=== PATIENT | male | born 1935 | race Caucasian/White ===

== ENCOUNTER → 2023-09-17 15:05 | Outpatient (REF) | payer OTHER, SELFPAY | LOC: RCS 15:05 | PROVIDERS: ATTENDING PHYSICIAN Internal Medicine | DX: R01.1 Cardiac murmur, unspecified (principal) | CPT/HCPCS: 93306 ==

== ENCOUNTER 2024-01-09 08:37 | Emergency (ER) | payer OTHER, SELFPAY ==
[2024-01-09 08:38] VITALS: BP 138/75
[2024-01-09 09:01] VITALS: BMI 24.7
[2024-01-09 09:06] VITALS: BP 136/66
--- NOTE | 2024-01-09 09:10 | EDRN ---
Dr. Rose in room w/ pt at this time.
--- NOTE | 2024-01-09 09:19 | EDRN ---
bridge of nose cleansed extensively w/ saline then dressed w/ double antibiotic ointment. Fingers #3, 4, and 5 cleansed extensively w/saline and dressed w/ double antibiotic ointment. Bilateral knees cleansed extensively w/ saline- R knee dressed w/
double antibiotic ointment and L knee as abrasion larger and sl deeper was dressed w/ double antibiotic ointment and bandaid (large size).
--- NOTE | 2024-01-09 09:21 | ED.GENMED ---
History of Present Illness
General
Chief Complaint: Fall
Source: patient and spouse ( who is at the bedside)
Exam Limitations: none
Time Seen by Provider: 01/09/24 08:53
Nursing documentation reviewed up to this point in time: agreed with
History of Present Illness
History of Present Illness:
The patient is a very pleasant 88-year-old man who reports that about 24 hours ago, he missed a step out to his garage and fell in his garage on the concrete. Patient reports that he scraped the bridge of his nose, and fell onto his right hand and
his knees. Patient reports there was no loss of consciousness and he did not hit his head. He denies nausea, vomiting and vision changes. He denies dizziness. He denies neck pain, chest pain and back pain. Patient reports that since the fall,
he has had swelling in severe pain in his right knee and has been able to walk around with the help of his . Patient takes a baby aspirin but no Plavix nor any strong blood thinners. Patient has an abrasions on the bridge of his nose, on his
right hand and left knee.
Past History
Past History
ED Past Medical History: HTN and Hypercholesterolemia
ED Past Surgical History: Orthopedic (Bilateral knee replacements) and Other (Hernia repair)
Social History
Tobacco: Non-smoker
Alcohol: Former
Drug: None
Personal:
Living: with family
Employment: Retired
Family History
Family History: Other
Review of Systems
Review of Systems
Allergies reviewed?: Yes
All Other Systems: ROS reviewed and negative except as documented in HPI and ROS
Constitutional: Reports no symptoms
EENT: Reports no symptoms
Respiratory: Reports no symptoms
Cardiac: Reports no symptoms
ABD/GI: Reports no symptoms
: Reports no symptoms
Musculoskeletal: Reports joint pain and joint swelling
Skin: Reports other
Neurological: Reports no symptoms
Endocrine: Reports no symptoms
Hematologic/Lymphatic: Reports no symptoms
Psychiatric: Reports no symptoms
Phy Exam
Physical Exam
Physical Exam:
Physical Exam
General: no apparent distress, not acutely ill, smiling, conversational. Abrasion of bridge of nose with mild ecchymoses in the localized area of bridge of nose. No significant swelling or deformity of bridge of nose. Facial
bones are nontender and there is no swelling of periorbital area, forehead, and cheeks. No tenderness or swelling of maxilla or mandible
Neck: supple. Nontender
Heart: s1/s2 regular rate and rhythm, equal radial pulses. No chest wall tenderness, no vertebral spine tenderness
Lungs: no acute respiratory distress. clear bilaterally
Abdomen: Soft, nontender
Neuro: alert and orientedx3. no focal neurological deficits. Fully awake, alert and answering all questions appropriately. 5 out of 5 strength in all extremities without drift. Extraocular muscles intact
Skin: Small skin abrasion bridge of nose, small abrasions on PIP joint of fifth, fourth, and third fingers of right hand. Abrasion left patellar area
Psychiatric: well kept. interactive and cooperative
Extremities: Mild soft tissue tenderness of right hand. No tenderness of bilateral wrists, elbows, and shoulders. Pelvis and hips are nontender. Mild soft tissue tenderness of left knee. Significant swelling and ecchymoses
of right anterior knee. Strong pulses of bilateral feet. No swelling of ankles bilaterally. Negative Homans' sign.
Course
Orders/Labs/Results
Orders:
Orders
01/09/24 09:17
CR Knee - Left 4 Or More View* Urgent
Comment:
Reason For Exam: fall
CR Knee- Right 4 Or More View* Urgent
Comment: sunrise view please
Reason For Exam: fall
01/09/24 09:18
Hand, Right 3 View [CR Hand - Right Min 3 Views] Urgent
Comment:
Reason For Exam: fall
PT Consult [Pt Eval And Treat] Urgent
Activity Level: Out of Bed-Early Mobility
01/09/24 09:19
Acetaminophen [Tylenol] 1,000 mg PO NOW STA
Tetanus/Diphth/Acelpertussis [Adacel] 0.5 ml IM .ONCE ONE
01/09/24 10:27
Knee Immobilizer Right-Treatme ONCE
01/09/24 10:58
Case Management Consult ONCE
Case Management Consult: VN/Home Care
Requested By:: PHYSICIAN
Comment: Pt needs home PT for right patellar fracture
Vital Signs
Initial and Last Documented VS:
Initial Vital Signs
Temp Pulse Resp BP Pulse Ox
98.3 F 91 16 138/75 100
01/09/24 08:38 01/09/24 08:38 01/09/24 08:38 01/09/24 08:38 01/09/24 08:38
Last Documented Vital Signs
Temp Pulse Resp BP Pulse Ox
98.3 F 78 16 146/80 96
01/09/24 08:38 01/09/24 10:00 01/09/24 10:00 01/09/24 10:00 01/09/24 10:00
MDM/Problems Addressed
Differential Diagnosis Includes:
Right patellar fracture, right knee contusion, nasal bone fracture
MDM/Problems Addressed:
Patient presents with acute right knee pain and swelling after fall yesterday
Chronic conditions affecting care: HTN
Acute Exacerbation and/or Progression of Chronic Illness:
Patient is acutely hypertensive, however, he is having significant pain in right knee
Acute Exacerbation and/or Progression of Chronic Illness: HTN
*Radiology
Radiology exam reviewed: preliminary read by ED provider (Right hand x-ray reviewed by me. No acute fracture. No acute fracture of left knee. Patellar fracture of right knee, reviewed by me) and radiology read reviewed
*Pulse Oximetry
Patient hypoxic: no
*EKG
Interpreted by ED Provider?: NA
*Critical Care Note
Total Time (30-74mins, 75-104mins- exclusive of procedures): Not Applicable
Data Reviewed
Review of Other/Old Records Reveals: Testing (Cardiac echo in 09/17/2023 showed an EF of 55 to 60%)
Source: patient and spouse
Further Testing Considered But Not Given:
I considered doing a CT of patient's face to look for nasal bone fracture, however, patient has minimal bruising of bridge of nose and says to be breathing comfortably out of his nose. We discussed the fact the patient could have a nasal bone
fracture, however, patient and his feel that a CAT scan is unnecessary if there is not a specific need to do urgent/emergent surgery or any specific intervention even if there is a nasal bone fracture. It is highly doubtful patient has a
periorbital fracture given that he is moving his eyes around normally and has no bruising or swelling around eyes or cheeks. Additionally, I do not think a CT head is necessary because patient has had no headache or dizziness. He denies hitting
his head. He is not on blood thinners.
Patient Management
Social determinants of health affecting care: Living situation and Strong social support
Discussion with other providers: Other (Physical therapy came to see the patient. Patient was able to get around well with a knee immobilizer and walker. I have also consulted case management to set up home physical therapy)
Escalation/DeEscalation of care consider admission/obs:
Fracture discussed with Dr. Tam who is the on-call orthopedic doctor for [facility]. He agreed with knee immobilizer and weight-bear as tolerated.
ED Attending Note
-
Portions of this chart may have been created with voice recognition software.� Occasional wrong word or��sound alike� substitutions may have occurred due to the inherent limitations of voice recognition software.
Discharge Plan
Departure
Patient Disposition: Home (Routine Discharge)
Date of Disposition: 01/09/24
Time of Disposition: 10:57
Patient with high blood pressure during this ER visit?: Yes
Consults for patient: Case Management
Condition: Good
Covid-19: Not Applicable
Discharge Problem:
Right patella fracture, Abrasion of skin of right hand, Abrasion of face, Abrasion of left knee
Instructions: Knee Immobilizer (DC), Abrasions ED, Patella Fracture ED, BLOOD PRESSURE
Prescriptions:
No Action
naproxen 500 MG tablet,delayed release (DR/EC)
500 mg PO BID
atorvastatin 10 MG tablet
10 mg PO QPM
aspirin [Lo-Dose Aspirin] 81 MG tablet,delayed release (DR/EC)
81 mg PO QPM
lisinopril 10 MG tablet
20 mg PO DAILY
Glucosamine
500 mg PO BID
Cream Base
PRN (Reason: right under arm/right chest ra)
Patient Comments:
patient does not recall the name of the cream. His will bring in the tube and show the nurse after his surgery is completed.
fluocinonide-emollient 60 GM cream
60 gm TP
Patient Comments:
use as needed to the underarm prn
Referrals:
Brett Juarez MD [Family Provider] -
Lucas Cortes MD [Active] - (Call Dr. Cortes's office this Thursday to set up an appointment for as soon as possible.)
Activity Restrictions/Additional Instructions:
Weight-bear as tolerated on your right leg. Wear the immobilizer at all times. Please call Dr. Cortes's office on Thursday to see an orthopedic doctor soon as possible. Return with any significant headache or dizziness.
Interventions
Interventions:
*Risk Screen - Suicide Last Done: 01/09/24 08:38
*General Assessment Last Done: 01/09/24 09:01
*Neglect/Abuse Screening Last Done: 01/09/24 08:38
ED- Fall Risk Assessment Last Done: 01/09/24 09:01
*ED COVID-19 Vaccine History Last Done: 01/09/24 09:01
ED-Musculoskeletal Assessment Last Done: 01/09/24 09:06
ED- Neurological Assessment Last Done: 01/09/24 09:06
ED-Skin Assessment Last Done: 01/09/24 09:06
Discharge Date and Time
Print Language: PORTUGUESE
[2024-01-09 10:00] VITALS: BP 146/80
[2024-01-09] MEDS: TYLENOL 1000 MG PO (10:00)
[2024-01-09] MEDS: ADACEL 0.5 ML IM (10:01)
[2024-01-09 10:45] VITALS: BP 132/76
--- NOTE | 2024-01-09 10:54 | EDRN ---
PT is in room w/ pt at this time.
--- NOTE | 2024-01-09 10:55 | EDRN ---
PT states pt had less pain w/ knee immobilizer, walked well w/ walker w/ PT. Spouse states walker is available to pt at home. PT is recommending in home PT w/ case management consult for that. Pt advised pt to remain downstairs for now and not
attempt stairs in house.
[2024-01-09 11:01] VITALS: BP 132/76; PULSE 75; O2SAT 96
[2024-01-09 11:15] VITALS: BP 135/77
--- NOTE | 2024-01-09 11:35 | EDRN ---
Addendum entered by Yusra Esposito RN 01/09/24 11:36:
in at 11:15
Original Note:
[employer] Yesika in to see pt and gave details of PT that it would start next week and that PT will call them.
--- NOTE | 2024-01-09 11:48 | CM ---
CM consult for placement. CM introduced self and role. PT recommending PT/OT with [facility]. Patient chose [facility].
== END 2024-01-09 11:30 | disposition home or self-care (01) ==
LOC: EMR 08:37
PROVIDERS: EMERGENCY PHYSICIAN Emergency Medicine; FAMILY PHYSICIAN Internal Medicine
DX: S82.041A Displaced comminuted fracture of right patella, initial encounter for closed fracture (principal); S60.511A Abrasion of right hand, initial encounter; S80.212A Abrasion, left knee, initial encounter; S00.31XA Abrasion of nose, initial encounter; W10.9XXA Fall (on) (from) unspecified stairs and steps, initial encounter; I10 Essential (primary) hypertension; Z23 Encounter for immunization; Z96.653 Presence of artificial knee joint, bilateral
CPT/HCPCS: 99283; 29505; 90471; 73130; 73564; 90715

== ENCOUNTER 2024-03-11 11:04 | Emergency (ER) | payer OTHER, SELFPAY ==
[2024-03-11 11:08] VITALS: BP 162/92
[2024-03-11 12:03] VITALS: BP 167/72; BMI 22.8
--- NOTE | 2024-03-11 12:04 | ED.GENMED ---
History of Present Illness
General
Chief Complaint: Cardiac Symptoms
Source: patient and spouse
Exam Limitations: none
Time Seen by Provider: 03/11/24 11:55
Nursing documentation reviewed up to this point in time: agreed with
History of Present Illness
History of Present Illness:
89-year-old male presents emergency department after going to urgent care to have the wax cleaned out his ears. When he was there they checked his blood pressure, did an EKG and heard a murmur.
Past History
Past History
ED Past Medical History: HTN and Hypercholesterolemia
ED Past Surgical History: Orthopedic (Bilateral knee replacements) and Other (Hernia repair)
Social History
Tobacco: Non-smoker
Alcohol: Former
Drug: None
Personal:
Living: with family
Employment: Retired
Family History
Family History: Other
Review of Systems
Review of Systems
Allergies reviewed?: Yes
All Other Systems: Not applicable
Constitutional: Reports no symptoms
EENT: Reports no symptoms
Respiratory: Reports no symptoms
Cardiac: Reports no symptoms
ABD/GI: Reports no symptoms
: Reports no symptoms
Musculoskeletal: Reports no symptoms
Skin: Reports no symptoms
Neurological: Reports no symptoms
Endocrine: Reports no symptoms
Hematologic/Lymphatic: Reports no symptoms
Psychiatric: Reports no symptoms
Phy Exam
Physical Exam
Physical Exam:
Physical Exam
General: no apparent distress, not acutely ill
Neck: supple. no meningeal signs. normal posterior pharynx
Heart: s1/s2 regular rate and rhythm, 3/6 systolic ejection murmur. equal radial
pulses.
HEENT: Pupils equal round reactive to light, EOMI
Lungs: no acute respiratory distress. clear bilaterally
Abdomen: normal bowel sounds. not tender. no CVAT
Neuro: alert and oriented. no focal neurological deficits cranial nerves II through XII intact
Skin: no rash
Psychiatric: well kept. interactive and cooperative
Extremities: no edema. no calf tenderness. negative homans. good distal pulses
Course
Orders/Labs/Results
Orders:
Orders
03/11/24 11:12
Electrocardiogram (*1) Urgent
Reason for Study: Chest Pain
EKG- Treatment ONCE
Vital Signs
Initial and Last Documented VS:
Initial Vital Signs
Temp Pulse Resp BP Pulse Ox
97.8 F 74 20 162/92 98
03/11/24 11:08 03/11/24 11:08 03/11/24 11:08 03/11/24 11:08 03/11/24 11:08
Last Documented Vital Signs
Temp Pulse Resp BP Pulse Ox
98.5 F 71 20 167/72 97
03/11/24 12:03 03/11/24 12:03 03/11/24 12:03 03/11/24 12:03 03/11/24 12:15
MDM/Problems Addressed
Differential Diagnosis Includes:
Heart murmur
MDM/Problems Addressed:
89-year-old male with heart murmur, old. Patient had echocardiogram in September that showed a aortic stenosis, mild and mild tricuspid regurgitation. Patient denies any symptoms. Stable for discharge. Urgent care felt this was a new murmur and sent
him to the ED.
*Pulse Oximetry
Patient hypoxic: no
*Critical Care Note
Total Time (30-74mins, 75-104mins- exclusive of procedures): Not Applicable
Data Reviewed
Review of Other/Old Records Reveals: Testing (Echocardiogram September 2023 showed tricuspid regurgitation and mild aortic stenosis)
Source: records
Further Testing Considered But Not Given:
Labs not indicated
Patient Management
Social determinants of health affecting care: Living situation and Strong social support
Escalation/DeEscalation of care consider admission/obs:
Admit not indicated
ED Attending Note
-
Portions of this chart may have been created with voice recognition software.� Occasional wrong word or��sound alike� substitutions may have occurred due to the inherent limitations of voice recognition software.
Discharge Plan
Departure
Patient Disposition: Home (Routine Discharge)
Date of Disposition: 03/11/24
Time of Disposition: 12:11
Patient with high blood pressure during this ER visit?: Yes
Condition: Good
Discharge Problem:
Systolic ejection murmur, Aortic stenosis
Instructions: Aortic Stenosis, Adult (DC), BLOOD PRESSURE
Prescriptions:
No Action
naproxen 500 MG tablet,delayed release (DR/EC)
500 mg PO BID
atorvastatin 10 MG tablet
10 mg PO QPM
aspirin [Lo-Dose Aspirin] 81 MG tablet,delayed release (DR/EC)
81 mg PO QPM
lisinopril 10 MG tablet
20 mg PO DAILY
Glucosamine
500 mg PO BID
Cream Base
PRN (Reason: right under arm/right chest ra)
Patient Comments:
patient does not recall the name of the cream. His will bring in the tube and show the nurse after his surgery is completed.
fluocinonide-emollient 60 GM cream
60 gm TP
Patient Comments:
use as needed to the underarm prn
Referrals:
Mony Hernandez, DO [Active] - Call in 1-3 days for appt
Interventions
Interventions:
*Risk Screen - Suicide Last Done: 03/11/24 11:08
*General Assessment Last Done: 03/11/24 11:08
*Neglect/Abuse Screening Last Done: 03/11/24 11:08
ED- Fall Risk Assessment Last Done: 03/11/24 12:03
*ED COVID-19 Vaccine History Last Done: 03/11/24 12:03
*Nursing Disposition Last Done: 03/11/24 12:18
ED- Pulmonary Assessment Last Done: 03/11/24 12:03
ED- Cardiac Assessment Last Done: 03/11/24 12:03
Discharge Date and Time
Discharge Date/Time: 03/11/24 12:19
Print Language: SERBIAN
== END 2024-03-11 12:19 | disposition home or self-care (01) ==
LOC: EMR 11:04
PROVIDERS: EMERGENCY PHYSICIAN Emergency Medicine; FAMILY PHYSICIAN Internal Medicine
DX: I08.2 Rheumatic disorders of both aortic and tricuspid valves (principal); I35.0 Nonrheumatic aortic (valve) stenosis; I10 Essential (primary) hypertension; E78.00 Pure hypercholesterolemia, unspecified; Z96.653 Presence of artificial knee joint, bilateral
CPT/HCPCS: 99283; 93005

== ENCOUNTER 2024-08-09 17:59 | Emergency (ER) | payer OTHER, SELFPAY ==
[2024-08-09 18:02] VITALS: BP 126/75
[2024-08-09 18:15] LABS: % Basophils 0.2 % (0-2); % Immature Granulocytes 0.3 % (0-0.5); % Lymphocytes 5.3 % (20.5-51.1); % Monocytes 4.7 % (1.7-9.3); % Neutrophils 89.5 % (42.2-75.2); Absolute Immature Granulocytes 0.1 10^3/uL (0-0.05); Absolute Lymphocytes 0.8 10^3/uL (1.2-3.4); Absolute Monocytes 0.7 10^3/uL (0.1-0.6); Absolute Neutrophils 13.4 10^3/uL (1.4-6.5); Hematocrit 39.3 % (39.0-52.0); Hemoglobin 14.1 g/dL (13.0-18.0); Mean Corp Hgb Conc. 35.9 g/dL (33.0-37.0); Mean Corpuscular Hgb 31.1 pg (27.0-31.0); Mean Corpuscular Volume 86.8 fL (80.0-94.0); Mean Platelet Volume 9.1 fL (7.4-10.4); Nucleated Red Blood Cells % 0 % (-); Platelet Count 242 10^3/uL (130-400); Red Blood Cell Count 4.53 10^6/uL (4.70-6.10); Red Cell Dist. Width 12.8 % (11.5-14.5)
[2024-08-09 18:34] LABS: ALT (SGPT) 17 U/L (0-50); AST (SGOT) 29 U/L (17-59); Albumin 4.3 g/dl (3.5-5.0); Alkaline Phosphatase 89 U/L (38-126); Blood Urea Nitrogen 20 mg/dl (9-20); Calcium 9.7 mg/dl (8.4-10.2); Carbon Dioxide 19 mmol/L (22-30); Chloride 101 mmol/L (98-107); Glucose 152 mg/dl (70-99); Lipase 43 U/L (23-300); Potassium 5.1 mmol/L (3.5-5.1); Sodium 132 mmol/L (135-145); Total Bilirubin 1.2 mg/dl (0.2-1.3); Total Protein 7.1 g/dl (6.3-8.2); eGFR > 60.00
--- NOTE | 2024-08-09 18:55 | ED.GENMED ---
History of Present Illness
<FERNY Shirley - Last Filed: 08/10/24 13:15>
General
Chief Complaint: Abdominal Symptoms
Source: patient
Exam Limitations: none
Time Seen by Provider: 08/09/24 18:52
Nursing documentation reviewed up to this point in time: agreed with
History of Present Illness
History of Present Illness:
Patient is an 89-year-old male who presents to the ER with diarrhea. reports patient had multiple episodes of liquidy diarrhea today. She reports an episode 2 days ago that lasted for several days and prior to that several weeks ago he had a
similar episode.
He denies any abdominal pain nausea vomiting fever chills.
Past History
<FERNY Shirley - Last Filed: 08/10/24 13:15>
Past History
ED Past Medical History: HTN and Hypercholesterolemia
ED Past Surgical History: Orthopedic (Bilateral knee replacements) and Other (Hernia repair)
Social History
Tobacco: Non-smoker
Alcohol: Former
Drug: None
Personal:
Living: with family
Employment: Retired
Family History
Family History: Other
Review of Systems
<FERNY Shirley - Last Filed: 08/10/24 13:15>
Review of Systems
Allergies reviewed?: Yes
All Other Systems: ROS reviewed and negative except as documented in HPI and ROS
Constitutional: Reports no symptoms; Denies fever, fatigue or chills
EENT: Reports no symptoms
Respiratory: Reports no symptoms
Cardiac: Reports no symptoms
ABD/GI: Reports diarrhea; Denies abdominal pain, nausea or vomiting
Musculoskeletal: Reports no symptoms
Skin: Reports no symptoms
Neurological: Reports no symptoms
Psychiatric: Reports no symptoms
Phy Exam
<FERNY Shirley - Last Filed: 08/10/24 13:15>
General Physical Exam
General Presentation: no apparent distress
General age: appears stated age
General Skin: warm and dry
General Habitus: elderly
General Mental: alert
General Hydration: appears well hydrated
Cardiovascular Exam
Cardiovascular Exam: regular rate/rhythm, no murmur and normal peripheral pulses
Gastrointestinal Exam
Gastrointestinal Exam: normal bowel sounds, non tender, soft and other (brown stool heme neg ; stool soft not liquidy on exam)
Neurological Exam
Neurological Exam: alert and oriented x3
Musculoskeletal Exam
Musculoskeletal Exam: full ROM
Skin Exam
Skin Exam: normal color and warm/dry
Psychiatric Exam
Psychiatric Exam: normal mood/affect
Course
<FERNY Shirley - Last Filed: 08/10/24 13:15>
Orders/Labs/Results
Orders:
Orders
08/09/24 18:08
Complete Blood Count/With Diff Urgent
Comprehensive Metabolic Panel Urgent
Lipase Urgent
08/09/24 19:10
CT Abd/pelvis W Iv Cont Urgent
Comment:
Reason For Exam: diarrhea elevated wbc
08/09/24 19:12
0.9% Sodium Chloride 500 ml [Nss] 500 ml IV BOLUS
08/09/24 23:30
Enema- Treatment ONCE
Type: Milk of Molasses
Amount: x1
08/10/24 02:01
Magnesium Citrate [Citroma] 300 ml PO ONCE ONE
Abnormal Lab Results
08/09/24
18:08
WBC 15.0 H 10^3/uL
(4.8-10.8)
RBC 4.53 L 10^6/uL
(4.70-6.10)
MCH 31.1 H pg
(27.0-31.0)
Abs Immat Gran (auto) 0.1 H 10^3/uL
(0-0.05)
Absolute Neuts (auto) 13.4 H 10^3/uL
(1.4-6.5)
Absolute Lymphs (auto) 0.8 L 10^3/uL
(1.2-3.4)
Absolute Monos (auto) 0.7 H 10^3/uL
(0.1-0.6)
Neutrophils % 89.5 H %
(42.2-75.2)
Lymphocytes % 5.3 L %
(20.5-51.1)
Sodium 132 L mmol/L
(135-145)
Carbon Dioxide 19 L mmol/L
(22-30)
Glucose 152 H mg/dl
(70-99)
08/09/24 18:08
08/09/24 18:08
Vital Signs
Initial and Last Documented VS:
Initial Vital Signs
Temp Pulse Resp BP Pulse Ox
99.3 F 103 18 126/75 95
08/09/24 18:02 08/09/24 18:02 08/09/24 18:02 08/09/24 18:02 08/09/24 18:02
Last Documented Vital Signs
Temp Pulse Resp BP Pulse Ox
98.8 F 103 18 135/73 96
08/09/24 19:11 08/09/24 18:02 08/09/24 18:02 08/09/24 22:00 08/10/24 01:00
Deputy Coroner Investigator consulted with Physician
Deputy Coroner Investigator consulted with physician?: Yes
Name of Physician Consulted: Baldev
<Tianna Guadalupe PA-C - Last Filed: 08/10/24 02:07>
Orders/Labs/Results
Orders:
Orders
08/09/24 18:08
Complete Blood Count/With Diff Urgent
Comprehensive Metabolic Panel Urgent
Lipase Urgent
08/09/24 19:10
CT Abd/pelvis W Iv Cont Urgent
Comment:
Reason For Exam: diarrhea elevated wbc
08/09/24 19:12
0.9% Sodium Chloride 500 ml [Nss] 500 ml IV BOLUS
08/09/24 23:30
Enema- Treatment ONCE
Type: Milk of Molasses
Amount: x1
08/10/24 02:01
Magnesium Citrate [Citroma] 300 ml PO ONCE ONE
Abnormal Lab Results
08/09/24
18:08
WBC 15.0 H 10^3/uL
(4.8-10.8)
RBC 4.53 L 10^6/uL
(4.70-6.10)
MCH 31.1 H pg
(27.0-31.0)
Abs Immat Gran (auto) 0.1 H 10^3/uL
(0-0.05)
Absolute Neuts (auto) 13.4 H 10^3/uL
(1.4-6.5)
Absolute Lymphs (auto) 0.8 L 10^3/uL
(1.2-3.4)
Absolute Monos (auto) 0.7 H 10^3/uL
(0.1-0.6)
Neutrophils % 89.5 H %
(42.2-75.2)
Lymphocytes % 5.3 L %
(20.5-51.1)
Sodium 132 L mmol/L
(135-145)
Carbon Dioxide 19 L mmol/L
(22-30)
Glucose 152 H mg/dl
(70-99)
08/09/24 18:08
08/09/24 18:08
Vital Signs
Initial and Last Documented VS:
Initial Vital Signs
Temp Pulse Resp BP Pulse Ox
99.3 F 103 18 126/75 95
08/09/24 18:02 04/29/25 18:02 08/09/24 18:02 08/09/24 18:02 08/09/24 18:02
Last Documented Vital Signs
Temp Pulse Resp BP Pulse Ox
98.8 F 103 18 135/73 96
08/09/24 19:11 08/09/24 18:02 08/09/24 18:02 08/09/24 22:00 08/10/24 01:00
<FERNY Shirley - Last Filed: 08/10/24 13:15>
MDM/Problems Addressed
MDM/Problems Addressed:
Patient is an 89-year-old male who presents to the ER for episodes of diarrhea. As documented reports patient had intermittent episodes in the past. He denies any abdominal pain. Rectal exam performed and in his dependent diaper he had a
moderate amount of soft stool brown in color heme negative. Labs reviewed showed minimally elevated white count normal hemoglobin unremarkable chemistries. Patient is nontoxic-appearing no fever no infectious complaints. Abdomen soft and
nontender patient no acute distress. CAT scan was done which does indicate constipation rectal fecal impaction and no bowel structure. Patient was ordered an enema however he already started to have formed bowel movements on his own. Signout
given to LAQUITA Judd.
Plan for d/c home if relief with enema.
<FERNY Shirley - Last Filed: 08/10/24 13:15>
*Radiology
Radiology exam reviewed: radiology read reviewed
*Pulse Oximetry
Patient hypoxic: no
<Tianna Guadalupe PA-C - Last Filed: 08/10/24 02:07>
*Critical Care Note
Total Time (30-74mins, 75-104mins- exclusive of procedures): Not Applicable
<Tianna Guadalupe PA-C - Last Filed: 08/10/24 02:07>
Update Note
Update Note:
2:03 AM�
Tianna Guadalupe PA-C
I received this patient in signout. Patient presents emergency department with the episodes of diarrhea and on CAT scan he was found to have constipation. He had liquid stools and was then treated with a milk of molasses enema and he started to
have passage of formed but still looser stools. Did offer manual disimpaction however patient states that he would rather go home and try magnesium citrate. Patient is in no acute distress at this time. Advised patient to monitor his symptoms if
he continues to have movement, hold off on the magnesium citrate but you can take as needed. Return precautions discussed. Patient stable for discharge.
ED Attending Note
<FERNY Shirley - Last Filed: 08/10/24 13:15>
-
Portions of this chart may have been created with voice recognition software.� Occasional wrong word or��sound alike� substitutions may have occurred due to the inherent limitations of voice recognition software.
Discharge Plan
Departure
Patient Disposition: Home (Routine Discharge)
Date of Disposition: 08/10/24
Time of Disposition: 02:03
Patient with high blood pressure during this ER visit?: Yes
Condition: Good
Covid-19: Not Applicable
Discharge Problem:
Acute constipation
Instructions: Constipation, Adult (DC), BLOOD PRESSURE
Prescriptions:
No Action
naproxen 500 MG tablet,delayed release (DR/EC)
500 mg PO BID
atorvastatin 10 MG tablet
10 mg PO QPM
aspirin [Lo-Dose Aspirin] 81 MG tablet,delayed release (DR/EC)
81 mg PO QPM
lisinopril 10 MG tablet
20 mg PO DAILY
Glucosamine
500 mg PO BID
Cream Base
PRN (Reason: right under arm/right chest ra)
Patient Comments:
patient does not recall the name of the cream. His will bring in the tube and show the nurse after his surgery is completed.
fluocinonide-emollient 60 GM cream
60 gm TP
Patient Comments:
use as needed to the underarm prn
Referrals:
Bernard Caal PA-C [Family Provider] -
Activity Restrictions/Additional Instructions:
Be sure to increase water intake in diet high in fiber, fresh fruits and vegetables salads fruits etc. Please follow-up closely with your family doctor in the next several days for reevaluation of symptoms
PLEASE RETURN EMERGENCY DEPARTMENT SHOULD YOU DEVELOP ABDOMINAL PAIN, RECTAL BLEEDING, FEVERS OR CHILLS, NAUSEA OR VOMITING, OR ANY OTHER SIGNS OR SYMPTOMS WORRISOME TO YOU.
Interventions
Interventions:
*Risk Screen - Suicide Last Done: 08/09/24 18:02
*General Assessment Last Done: 08/09/24 18:02
*Neglect/Abuse Screening Last Done: 08/09/24 18:02
*ED- Fall Risk Assessment Last Done: 08/10/24 02:35
*ED COVID-19 Vaccine History Last Done: 08/09/24 18:02
*Nursing Disposition Last Done: 08/10/24 02:35
WE-Lelgej-Apgdxntpoh Assessment Last Done: 08/09/24 19:10
Discharge Date and Time
Discharge Date/Time: 08/10/24 02:35
Print Language: JAPANESE
[2024-08-09 19:09] VITALS: BP 146/94
[2024-08-09 19:10] VITALS: BMI 25.0
[2024-08-09] MEDS: NSS 500 IV (19:31)
[2024-08-09 20:00] VITALS: BP 128/68
[2024-08-09 21:00] VITALS: BP 116/72
[2024-08-09 21:55] VITALS: BP 156/85
[2024-08-09 22:00] VITALS: BP 135/73
[2024-08-10] MEDS: CITROMA 300 ML PO (02:06)
== END 2024-08-10 02:35 | disposition home or self-care (01) ==
LOC: EMR 17:59
PROVIDERS: Emergency Medicine; EMERGENCY PHYSICIAN Student in an Organized Health Care Education/Training Program
DX: K59.09 Other constipation (principal); E78.00 Pure hypercholesterolemia, unspecified; I10 Essential (primary) hypertension
CPT/HCPCS: 96360; 99284; 74177; 80053; 83690; 85025; Q9967

== ENCOUNTER 2024-08-14 10:56 | Emergency (ER) | payer OTHER, SELFPAY ==
[2024-08-14 11:24] VITALS: BP 165/79
--- NOTE | 2024-08-14 12:41 | ED.GENMED ---
History of Present Illness
General
Chief Complaint: Bowel Problem
Source: patient, records and spouse
Exam Limitations: none
Time Seen by Provider: 08/14/24 12:29
History of Present Illness
History of Present Illness:
89yoM with a history of hypertension and hyperlipidemia presenting with his for evaluation of constipation. Patient has not had a solid bowel movement for 6 days. He was seen in the ED 4 days ago for diarrhea. Imaging showed a fecal
impaction at that time. He was given a milk of molasses enema and was able to pass some liquid stools. He was discharged with magnesium citrate. He took this without any relief. He has not had any bowel movements since being discharged. He has
also tried walking, stool softeners, and Miralax. Patient is otherwise asymptomatic and denies any vomiting, difficulty urinating, abdominal pain, rectal pain.
Past History
Past History
ED Past Medical History: HTN and Hypercholesterolemia
ED Past Surgical History: Orthopedic (Bilateral knee replacements) and Other (Hernia repair)
Social History
Tobacco: Non-smoker
Alcohol: Former
Drug: None
Personal:
Living: with family
Employment: Retired
Family History
Family History: Other
Phy Exam
General Physical Exam
General Presentation: well appearing and no apparent distress
General age: appears stated age
General Skin: warm and dry
General Habitus: normal and elderly
General Mental: alert
ENT Exam
ENT Exam: normocephalic
Pulmonary Exam
Pulmonary Exam: no respiratory distress
Gastrointestinal Exam
Gastrointestinal Exam: normal bowel sounds, non tender, soft, non distended and other (Abdomen soft, non-distended, non-tender)
Rectal Exam: other (No stool palpated on CYNTHIA)
Neurological Exam
Neurological Exam: alert
Nelli Coma Scale
Eye Opening: Spontaneous
Verbal Response: Oriented
Motor Response: Obeys Commands
GCS Total Score: 15
Skin Exam
Skin Exam: normal color and warm/dry
Psychiatric Exam
Psychiatric Exam: normal mood/affect
Course
Orders/Labs/Results
Orders:
Orders
08/14/24 12:39
Enema- Treatment ONCE
Type: Milk of Molasses
Vital Signs
Initial and Last Documented VS:
Initial Vital Signs
Temp Pulse Resp BP Pulse Ox
98.4 F 65 16 165/79 96
08/14/24 11:24 08/14/24 11:24 08/14/24 11:24 08/14/24 11:24 08/14/24 11:24
Last Documented Vital Signs
Temp Pulse Resp BP Pulse Ox
98.4 F 65 16 165/79 96
08/14/24 11:24 08/14/24 11:24 08/14/24 11:24 08/14/24 11:24 08/14/24 11:24
MDM/Problems Addressed
Differential Diagnosis Includes:
89yoM here for constipation. Seen in ED 4 days ago for the same. Had a CT which showed a fecal impaction. Given an enema but has not had a BM since last visit. Otherwise asymptomatic and feeling well. Denies abd/rectal pain. No vomiting or urinary
retention. Abdominal exam is benign. No stool palpated on rectal exam. Differential diagnosis includes but is not limited to: constipation, fecal impaction, doubt acute surgical process
Initial ED plan: Will defer imaging at this time given recent CT 4 days ago, benign exam, and absence of pain. Milk of molasses enema and reassess.
*Critical Care Note
Total Time (30-74mins, 75-104mins- exclusive of procedures): Not Applicable
Update Note
Update Note:
Patient able to pass a small amount of formed stool after enema. Patient remains pain-free on reassessment. He is stable for discharge. is worried that patient will have the same problem when he goes home. Prescription provided for GoLytely but
patient only advised to start this if symptoms do not improve. He was instructed to f/u with his PCP this week and ED return precautions reviewed. Family and patient in agreement and he was discharged in stable condition.
ED Attending Note
-
Portions of this chart may have been created with voice recognition software.� Occasional wrong word or��sound alike� substitutions may have occurred due to the inherent limitations of voice recognition software.
Discharge Plan
Departure
Patient Disposition: Home (Routine Discharge)
Date of Disposition: 08/14/24
Time of Disposition: 14:38
Patient with high blood pressure during this ER visit?: Yes
Discharge Problem:
Constipation
Instructions: Constipation, Adult (DC)
Prescriptions:
New
peg 3350-electrolytes [Golytely] [id number] -5.86 gram recon soln
240 ml PO Q10M Qty: 4000 0RF
No Action
naproxen 500 MG tablet,delayed release (DR/EC)
500 mg PO BID
atorvastatin 10 MG tablet
10 mg PO QPM
aspirin [Lo-Dose Aspirin] 81 MG tablet,delayed release (DR/EC)
81 mg PO QPM
lisinopril 10 MG tablet
20 mg PO DAILY
Glucosamine
500 mg PO BID
Cream Base
PRN (Reason: right under arm/right chest ra)
Patient Comments:
patient does not recall the name of the cream. His will bring in the tube and show the nurse after his surgery is completed.
fluocinonide-emollient 60 GM cream
60 gm TP
Patient Comments:
use as needed to the underarm prn
Referrals:
UNKNOWN - PT DOES,NOT KNOW [Family Provider] -
Activity Restrictions/Additional Instructions:
Start GoLytely if symptoms do not improve after a few days.
Please follow-up with your family doctor this week. Return to the ER with any worsening symptoms, abdominal pain, vomiting, or inability to urinate.
Interventions
Interventions:
*Risk Screen - Suicide Last Done: 08/14/24 11:24
*General Assessment Last Done: 08/14/24 11:24
*Neglect/Abuse Screening Last Done: 08/14/24 12:43
*ED- Fall Risk Assessment Last Done: 08/14/24 12:43
*ED COVID-19 Vaccine History Last Done: 08/14/24 11:24
*Nursing Disposition Last Done: 08/14/24 14:55
[facility]-Wzrbog-Pxkvlnsrbm Assessment Last Done: 08/14/24 12:44
Discharge Date and Time
Discharge Date/Time: 08/14/24 15:06
Print Language: SAMOAN
[2024-08-14 12:43] VITALS: BMI 25.0
== END 2024-08-14 15:06 | disposition home or self-care (01) ==
LOC: EMR 10:56
PROVIDERS: EMERGENCY PHYSICIAN Emergency Medicine
DX: K59.00 Constipation, unspecified (principal); I10 Essential (primary) hypertension; E78.00 Pure hypercholesterolemia, unspecified; Z96.653 Presence of artificial knee joint, bilateral; Z79.82 Long term (current) use of aspirin
CPT/HCPCS: 99283

== ENCOUNTER → 2024-12-09 10:02 | Outpatient (REF) | payer OTHER, SELFPAY | LOC: HWRAD 10:02 | PROVIDERS: ATTENDING PHYSICIAN Internal Medicine | DX: R41.89 Other symptoms and signs involving cognitive functions and awareness (principal); R41.3 Other amnesia; Z78.9 Other specified health status; R26.89 Other abnormalities of gait and mobility | CPT/HCPCS: 70450 ==